=== PATIENT | male | born 1965 | race Caucasian/White ===

== ENCOUNTER 2022-03-31 15:46 | Inpatient (IN) ==
[2022-03-31] MEDS ORDERED: ONDANSETRON 4 MG/2 ML VIAL IV ONE (16:10)
[2022-03-31] MEDS ORDERED: 0.9 % SODIUM CHLORIDE 1,000 ML IV ONE ×2 (16:10→19:06)
[2022-03-31 16:33] LABS: POC Calcium, Ionized 0.98 (1.16-1.32); POC Creatinine 2.7 (0.6-1.2); POC Potassium 3.8 (3.3-5.1)
[2022-03-31] MEDS ORDERED: ONDANSETRON 4 MG ODT TABLET SL ONE (16:39)
[2022-03-31 16:54] LABS: Basophils # (Auto) 0.06 K/mcL (0.00-0.30); Basophils % (Auto) 0.4 % (0.0-2.0); Eosinophils # (Auto) 0.08 K/mcL (0.00-0.70); Eosinophils % (Auto) 0.6 % (0.0-7.0); Hematocrit 47.2 % (40.1-51.0); Hemoglobin 16.7 g/dL (13.7-17.5); Lymphocytes # (Auto) 1.39 K/mcL (1.50-4.80); Lymphocytes % (Auto) 10.2 % (15.5-49.0); Mean Cell Volume 87.7 fL (80.0-100.0); Mean Corpuscular HGB Conc 35.4 g/dL (31.0-36.0); Mean Platelet Volume 8.5 fL (7.4-10.4); Monocytes # (Auto) 1.46 K/mcL (0.10-0.90); Monocytes % (Auto) 10.7 % (1.0-12.0); Neutrophils % (Auto) 77.5 % (38.0-78.0); Platelet Count 294 K/mcL (140-440); RBC 5.38 M/mcL (4.63-6.08); Red Cell Distribution Width 12.1 % (11.5-14.5); WBC 13.6 K/mcL (4.5-11.0)
[2022-03-31 17:19] LABS: ALT/SGPT 38 U/L (<40); AST/SGOT 27 U/L (<40); Albumin 4.2 gm/dL (3.2-5.2); Alkaline Phosphatase 88 U/L (39-117); Bilirubin,Direct 0.2 mg/dL (<0.3); Globulin 3.5 gm/dL (2.2-3.7)
--- NOTE | 2022-03-31 17:32 | Emergency Department Note ---
Nausea/Vomiting/Diarrhea HPI General Chief complaint: Nausea/Vomiting/Diarrhea Stated complaint: Flu Symptoms Time Seen by Provider: 03/31/22 15:58 Source: patient Mode of arrival: ambulatory Limitations: no limitations History of Present Illness HPI Narrative: 56 y/o male with h/o poorly controlled T2DM, neuropathy, C/O flu-like symptoms x 1 week. The patient is hard of hearing at baseline and is a poor historian. I do collect some of his history from a friend here locally by telephone. She tells me that he has been complaining of not feeling well for the week. She stopped by to check on him today and told him he should go to the ER. She does note that he is a poorly controlled diabetic and there are watching his feet for wounds given his neuropathy. The patient endorses + Diarrhea + N/V. He denies urinary symptoms. Denies CVA tenderness. Denies fevers or chills. Denies previous abdominal surgeries. States he voided at about 7:00 this morning, but since then has not voided. Related Data Allergies Allergy/AdvReac Type Severity Reaction Status Date / Time No Known Drug Allergies Allergy Verified 03/31/22 16:15 Review of Systems ROS ROS Narrative: Narrative: All systems ED: reviewed and negative except as stated. [facility] Narrative Patient History Narrative: Narrative: Medical/Surgical/Family History All Active Problems (Updated 03/31/22 @ 19:23 by Nohemi Alvarado PA-C) Partial small bowel obstruction (Acute) Dehydration (Acute) Acute kidney injury (Acute) Social History Smoking Status: Never smoker Exam Narrative Narrative: General: AOx3, NAD, nontoxic appearing. HEENT: PERRL, EOMI, normocephalic. Moist mucous membranes. Normal facies and normal dentition. Chest: Symmetric, no pain to palpation Respiratory: Lungs clear to auscultation bilaterally. No respiratory distress. Unlabored breathing. Heart: Regular rate and rhythm, no murmurs/clicks/rubs. Abdomen: Non-tender, Non distended, normal bowel tones. No organomegaly. Extremities: Warm and well perfused. No edema. DP 2+ bilaterally. No venous stasis. Neuro: No focal deficits. Cranial nerves II-XII grossly normal. Skin: Warm dry, no rashes or lesions, no cyanosis. Psych: Flat mood and affect Heme/Lymph: No abnormal bruising General Limitations: no limitations Course Course Course Narrative: 56-year-old male presents with flulike symptoms and abdominal pain with nausea and vomiting Reevaluation(s) Reevaluation #1: Obtain basic labs, UA, give IV fluids CT scan of the abdomen pelvis Reevaluation #2: Patient's creatinine is 2.7. Last known creatinine was 1.0 on 01/23/2022 CT of the abdomen pelvis shows a possible's partial small bowel obstruction with transition point in the right upper quadrant. The stomach duodenum and jejunum are partially dilated. There is also notable bladder wall thickening and evidence of enlarged prostate. Given the patient's elevated creatinine we will check a bladder scan to query for bladder outlet obstruction. Reevaluation #3: Bladder scan with no urine in the bladder. Patient endorses last voided around 7 AM. Vital Signs Vital signs: Vital Signs Temperature 97.5 F 03/31/22 15:47 Pulse Rate 111 H 03/31/22 15:47 Respiratory Rate 18 03/31/22 15:47 Blood Pressure 129/72 03/31/22 15:47 Pulse Oximetry (%) 98 03/31/22 15:47 Oxygen Delivery Method 03/31/22 15:47 Temperature 97.5 F 03/31/22 15:47 Pulse Rate 94 H 03/31/22 19:49 Respiratory Rate 18 03/31/22 15:47 Blood Pressure 149/114 03/31/22 17:32 Pulse Oximetry (%) 93 03/31/22 19:49 Oxygen Delivery Method 03/31/22 15:47 [facility] Narrative Medical decision making narrative: Partial small bowel obstruction Acute kidney injury Dehydration I have spoken with Dr. Bray, general surgery, and he will see the patient. Plan will be for admission for partial small bowel obstruction and ADILSON. Patient was given an additional liter of IV fluids. No further nausea or vomiting during his evaluation here. Lab Data Result diagrams: 03/31/22 16:27 Labs: Lab Results 03/31/22 03/31/22 03/31/22 Range/Units 16:26 16:27 16:30 WBC 13.6 H (4.5-11.0) K/mcL RBC 5.38 (4.63-6.08) M/mcL Hgb 16.7 (13.7-17.5) g/dL Hct 47.2 (40.1-51.0) % POC Hct 46.0 (41-55) MCV 87.7 (80.0-100.0) fL MCH 31.0 (26.0-34.0) pg MCHC 35.4 (31.0-36.0) g/dL RDW 12.1 (11.5-14.5) % Plt Count 294 (140-440) K/mcL MPV 8.5 (7.4-10.4) fL Immature Gran % (Auto) 0.6 H (0.0-0.5) % Neut % (Auto) 77.5 (38.0-78.0) % Lymph % (Auto) 10.2 L (15.5-49.0) % Gilchrist % (Auto) 10.7 (1.0-12.0) % Eos % (Auto) 0.6 (0.0-7.0) % Baso % (Auto) 0.4 (0.0-2.0) % Lymph # (Auto) 1.39 L (1.50-4.80) K/mcL Gilchrist # (Auto) 1.46 H (0.10-0.90) K/mcL Eos # (Auto) 0.08 (0.00-0.70) K/mcL Baso # (Auto) 0.06 (0.00-0.30) K/mcL Immature Gran # 0.08 H (0.00-0.05) K/mcl Absolute Neutrophils 10.61 H (1.80-8.00) K/mcL POC Sodium 134 (133-145) POC Potassium 3.8 (3.3-5.1) POC Chloride 97 (96-108) POC Total CO2 28.0 (22-30) POC BUN 29 H (6-20) POC Creatinine 2.7 H (0.6-1.2) POC Glucose 266 H (70-105) POC WB Ioniz Calcium 0.98 L (1.16-1.32) Total Bilirubin 1.0 (0.1-1.0) mg/dL Direct Bilirubin 0.2 (<0.3) mg/dL AST 27 (<40) U/L ALT 38 (<40) U/L Alkaline Phosphatase 88 (39-117) U/L Total Protein 7.7 (5.9-8.4) gm/dL Albumin 4.2 (3.2-5.2) gm/dL Globulin 3.5 (2.2-3.7) gm/dL ED POC Tests ED POC Tests: IVETTE - SARS Antigen Negative Discharge Plan Patient/Caregiver Discharge Instructions Pt seen by RN PEDIATRIC/PA only: Yes Clinical Impression: Partial small bowel obstruction, Dehydration, Acute kidney injury Patient Disposition: Xfer As Inpt ([facility])
--- NOTE | 2022-03-31 18:21 | Cat Scan Report ---
CLINICAL INFORMATION: Abdominal pain COMPARISON: Abdomen CT 11/11/2004 TECHNIQUE: 0.625 mm helical slices were obtained from the mid heart through the subtrochanteric regions. Following reconstruction, 2.5 mm sagittal, coronal and axial reformatted images were processed and reviewed at bone and soft tissue windows.The exam was performed using radiation dose optimization techniques including, but not limited to, automated exposure control, adjustment of the mA and/or kV according to patient size and use of iterative reconstruction technique. FINDINGS: The lung bases are clear. No effusions. The visualized heart is grossly normal. Abdominal images show the noncontrasted gallbladder and bile ducts, liver, both kidneys, adrenal glands, spleen, and aorta, are normal in size, configuration and attenuation without focal lesion. Moderate atrophy of the pancreatic head, neck and proximal body has developed since the 2004 examination. The parenchyma is fat replaced in this region. There is no free air, free fluid or adenopathy. Pelvic images through the prostate is moderately enlarged spanning 6 x 3.8 cm. Mild diffuse wall thickening urinary bladder is suggestive of chronic bladder outlet obstruction due to prostatism. Seminal vesicles are normal. The stomach, duodenum and proximal jejunum are moderately dilated to a transition point in the right upper quadrant (best seen on sagittal image 61, axial image 92 and coronal image 50.) There appear to be a stricture in this region. The small bowel distal to this region and the colon are both relatively decompressed. Bone windows show no focal osseous abnormality. There is degenerative change in the lumbar spine. A 9 cm right inguinal hernia contains only mesenteric fat. There is a 4 cm left inguinal hernia containing mesenteric fat IMPRESSION: 1. Partial small bowel obstruction due to stricture in the distal jejunum-right upper quadrant. No evidence of third spacing or free air. 2. 9 cm right inguinal hernia containing only mesenteric fat. 3 cm left inguinal hernia contains only mesenteric fat. 3. Moderate atrophy of the pancreatic head neck and proximal body-new from [address] Interpreted and Authenticated by: Vinod Bennett 03/31/22
--- NOTE | 2022-03-31 20:12 | General Surg History&Physical ---
HPI History of Present Illness Patient information: Note initiated : 03/31/22 at 8:08 pm Service Date, if different from initiated Date: [] Patient: Alejandro Glasgow 56 y/o M admitted on for Flu Symptoms. Chief Complaint: [] Chief complaint: Recurrent nausea vomiting and diarrhea; partial small bowel obstruction History of present illness: Mr. Glasgow is a 56 year old M admitted for treatment of recurrent nausea vomiting diarrhea and acute kidney injury. History is very limited because of severe mental delay and extremely poor hearing. The patient lives alone and does not have any family. According to available history he became ill about 2 days ago with multiple episodes of nausea and vomiting. He estimates that he vomited more than 5 times. He has been unable to keep down any liquids. He states that he did have some diarrhea initially but that has improved. Patient has developed significant acute kidney injury Review of Systems ROS unobtainable: due to mental status (Severe mental developmental delay with no available family) PFSH PFSH All Active Problems (Updated 03/31/22 @ 20:39 by Bucky Bray MD) Nausea vomiting and diarrhea (Acute) Diabetes mellitus (Acute) Partial small bowel obstruction (Acute) Dehydration (Acute) Acute kidney injury (Acute) Family History (Updated 03/31/22 @ 20:33 by Bucky Bray MD) Mother No problems noted. Father No problems noted. MEDS/ALLERGIES Home Medications and Allergies Home Medications Medication Instructions Recorded Confirmed Type amlodipine 5 mg tablet 5 mg PO QDAY 04/01/22 04/01/22 History benazepril 20 mg tablet 20 mg PO QDAY 04/01/22 04/01/22 History diclofenac sodium 1 % topical gel 2 g topical QID 04/01/22 04/01/22 History (Voltaren Arthritis Pain) insulin glargine 100 unit/mL 100 unit subcut QPM 04/01/22 04/01/22 History subcutaneous solution metformin 1,000 mg tablet 1,000 mg PO BID 04/01/22 04/01/22 History nateglinide 120 mg tablet 120 mg PO TID 04/01/22 04/01/22 History testosterone cypionate 200 mg/mL See Rx Instructions .Route .COMPLEX 04/01/22 04/01/22 History intramuscular kit Allergies Allergy/AdvReac Type Severity Reaction Status Date / Time No Known Drug Allergies Allergy Verified 03/31/22 16:15 Physical Examination Vital Signs Vital signs: Temp Pulse Resp BP Pulse Ox O2 Del Method 97.5 F 94 H 18 149/114 93 03/31/22 15:47 03/31/22 19:49 03/31/22 15:47 03/31/22 17:32 03/31/22 19:49 03/31/22 15:47 General physical appearance General physical exam: no distress, moderate pain and obese (Morbidly obese) Eyes Eye exam: PERRL and normal ocular movement ENT ENT exam: normal mucosa, decreased hearing (Moderately severe bilateral hearing loss) and other (Totally edentulous) Head Head exam IM: Present atraumatic, normal inspection and normocephalic Neck Neck exam: no masses, no bruits, trachea midline, no lymphadenopathy and no venous distension Cardiovascular Cardiovascular exam IM: Present normal rate and rhythm, RRR, +S1, +S2 and tachycardia; Absent JVD Peripheral pulses: XXXX: carotid (L), carotid (R), dorsalis pedis (L), dorsalis pedis (R), posterior tibialis (L), posterior tibialis (R), radial (L) and radial (R) Respiratory Respiratory exam: normal expansion, normal respiratory effort and clear to auscultation Abdomen Abdomen: Present non tender, tender (Moderate tenderness in the mid abdomen), bowel sounds (Active bowel sounds) and distended; Absent masses or guarding Hernia: Present inguinal (Right inguinal hernia) Integumentary Integumentary: Present other (Severe intertrigo beneath pannus) Neurologic Neurologic: Present normal coordination, normal sensation and other (Moderately severe mental developmental delay) Musculoskeletal Musculoskeletal: Present other (Gait and stance not tested) Psychiatric Psychiatric: Present oriented to person; Absent oriented to time, speech is normal or memory intact Results Labs Result diagrams: 04/01/22 05:51 04/01/22 05:51 Labs: Abnormal lab results 03/31/22 03/31/22 Range/Units 16:27 16:30 WBC 13.6 H (4.5-11.0) K/mcL Immature Gran % (Auto) 0.6 H (0.0-0.5) % Lymph % (Auto) 10.2 L (15.5-49.0) % Lymph # (Auto) 1.39 L (1.50-4.80) K/mcL [place] # (Auto) 1.46 H (0.10-0.90) K/mcL Immature Gran # 0.08 H (0.00-0.05) K/mcl Absolute Neutrophils 10.61 H (1.80-8.00) K/mcL POC BUN 29 H (6-20) POC Creatinine 2.7 H (0.6-1.2) POC Glucose 266 H (70-105) POC WB Ioniz Calcium 0.98 L (1.16-1.32) Diabetes panel 03/31/22 Range/Units 16:26 AST 27 (<40) U/L ALT 38 (<40) U/L Alkaline Phosphatase 88 (39-117) U/L Total Protein 7.7 (5.9-8.4) gm/dL Albumin 4.2 (3.2-5.2) gm/dL Calcium panel 03/31/22 Range/Units 16:26 Albumin 4.2 (3.2-5.2) gm/dL Adrenal panel 03/31/22 Range/Units 16:26 Total Bilirubin 1.0 (0.1-1.0) mg/dL AST 27 (<40) U/L ALT 38 (<40) U/L Alkaline Phosphatase 88 (39-117) U/L Total Protein 7.7 (5.9-8.4) gm/dL Albumin 4.2 (3.2-5.2) gm/dL All other labs normal. A/P Assessment and plan (1) Nausea vomiting and diarrhea: Status: Acute (2) Partial small bowel obstruction: Status: Acute (3) Diabetes mellitus: Status: Acute (4) Acute kidney injury: Status: Acute (5) Dehydration: Status: Acute Plan Vigorous IV hydration Accu-Cheks every 6 with medium sliding scale insulin coverage CBC and inpatient panel in a.m. Check amylase and lipase Lactic acid level 2 view abdominal x-ray in the morning Baseline chest x-ray and EKG Possible small bowel follow-through if symptoms do not improve Time Spent With Patient Time: Total time spent is greater than 50% in coordination of care (as documented) at patient's floor/unit and/or counseling patient:
[2022-03-31] MEDS ORDERED: DEXTROSE 31 GM ORAL.SUSP PO PRN (20:51)
[2022-03-31] MEDS ORDERED: DEXTROSE 50% 50 ML VIAL IV PRN (20:51)
[2022-03-31] MEDS: INSULIN LISPRO 1 UNIT/0.01 ML UNIT SQ SCH (21:55)
[2022-03-31] MEDS: ONDANSETRON 4 MG/2 ML VIAL IV PRN (22:49)
[2022-03-31] MEDS: 0.9 % SODIUM CHLORIDE 1,000 ML IV SCH (22:57)
[2022-03-31] MEDS: 0.9 % SODIUM CHLORIDE 10 ML SYRINGE IV SCH (22:58)
[2022-04-01] MEDS: INSULIN LISPRO 1 UNIT/0.01 ML UNIT SQ SCH ×4 (00:41→17:47)
[2022-04-01] MEDS: 0.9 % SODIUM CHLORIDE 10 ML SYRINGE IV SCH ×3 (05:37→22:23)
[2022-04-01 07:04] LABS: Basophils # (Auto) 0.02 K/mcL (0.00-0.30); Basophils % (Auto) 0.3 % (0.0-2.0); Eosinophils # (Auto) 0.08 K/mcL (0.00-0.70); Eosinophils % (Auto) 1.1 % (0.0-7.0); Hematocrit 41.4 % (40.1-51.0); Hemoglobin 14.5 g/dL (13.7-17.5); Lymphocytes # (Auto) 1.27 K/mcL (1.50-4.80); Lymphocytes % (Auto) 17.7 % (15.5-49.0); Mean Cell Volume 88.8 fL (80.0-100.0); Mean Platelet Volume 8.3 fL (7.4-10.4); Monocytes # (Auto) 1.02 K/mcL (0.10-0.90); Monocytes % (Auto) 14.2 % (1.0-12.0); Neutrophils % (Auto) 66.4 % (38.0-78.0); Platelet Count 263 K/mcL (140-440); RBC 4.66 M/mcL (4.63-6.08); Red Cell Distribution Width 12.2 % (11.5-14.5); WBC 7.2 K/mcL (4.5-11.0)
[2022-04-01 07:18] LABS: Erythrocyte Sedimentation Rate 11 mm/hr (0-20)
[2022-04-01] MEDS: 0.9 % SODIUM CHLORIDE 1,000 ML IV SCH ×3 (07:26→15:35)
[2022-04-01 07:30] LABS: ALT/SGPT 27 U/L (<40); AST/SGOT 22 U/L (<40); Albumin 3.4 gm/dL (3.2-5.2); Albumin/Globulin Ratio 1.1 (1.0-2.3); Alkaline Phosphatase 80 U/L (39-117); Bilirubin,Direct < 0.2 mg/dL (0-0.3); Bilirubin,Total 0.7 mg/dL (0.1-1.0); Blood Urea Nitrogen 24 mg/dL (6-20); Calcium 7.9 mg/dL (8.6-10.4); Carbon Dioxide 23 mmol/L (22-30); Chloride 102 mmol/L (96-108); Globulin 3.2 gm/dL (2.2-3.7); Glomerular Filtration Rate 39; Glucose 200 mg/dL (70-105); Lactate Dehydrogenase 252 U/L (135-225); Phosphorous 2.5 mg/dL (2.5-4.5); Triglycerides 193 mg/dL (<150); Uric Acid 9.4 mg/dL (2.5-8.0)
--- NOTE | 2022-04-01 12:51 | XRay Report ---
CLINICAL INFORMATION: Preop COMPARISON: None. TECHNIQUE: Portable FINDINGS: The heart size, mediastinum and pulmonary vessels are unremarkable. The lungs are clear. There are no effusions. The bones and soft tissues are within normal limits. IMPRESSION: Normal chest. Interpreted and Authenticated by: Vinod Bennett 04/01/22
--- NOTE | 2022-04-01 13:04 | XRay Report ---
CLINICAL INFORMATION: Follow-up small bowel obstruction COMPARISON: Abdomen and pelvic CT 03/31/2022 FINDINGS: A few loops of proximal small bowel remain moderately dilated with relative decrease in caliber the distal small bowel and colon. Findings compatible with partial small bowel obstruction due to stricture in the right upper quadrant jejunum. There is no free air, soft tissue mass, pathologic ossification organomegaly. IMPRESSION: Mild partial small bowel obstruction in the right upper quadrant Interpreted and Authenticated by: Vinod Bennett 04/01/22
--- NOTE | 2022-04-01 16:53 | General Surgery Progress Note ---
SUBJECTIVE Subjective Patient information: Note initiated : 04/01/22 at 4:47 pm Service Date, if different from initiated Date: [] Patient: Alejandro Glasgow 56 y/o M admitted on 03/31/22 for Flu Symptoms. Chief Complaint: [] Principal diagnosis: Nausea vomiting and diarrhea Interval history: Patient is clinically improved. His white blood count is decreased to 7.2. BUN and creatinine are improved. Serum glucose is 200. He denies abdominal pain. Constitutional Vitals: Vital Signs Temp Pulse Resp BP Pulse Ox O2 Del Method 98.2 F 84 20 118/77 95 04/01/22 12:00 04/01/22 12:00 04/01/22 12:00 04/01/22 12:00 04/01/22 12:00 04/01/22 12:00 Period Temp Pulse Resp BP Sys/Harp Pulse Ox O2 Del Method O2 Flow Rate Last 24 Hr 97.5 F-98.2 F 84-98 - 113-149/74-114 93-96 Room Air-Room Air Intake and Output 04/01/22 04/01/22 04/01/22 05:59 13:59 21:59 Intake Total 400 1720 1000 Output Total 4 Balance 396 1720 1000 Weight 281 lb 8 oz Patient Weight 04/02/22 05:59 Weight 281 lb 8 oz Intake & Output: Intake & Output 04/01/22 04/01/22 04/01/22 05:59 13:59 21:59 Intake Total 400 1720 1000 Output Total 4 Balance 396 1720 1000 Weight 281 lb 8 oz Intake: IV 1000 1000 Sodium Chloride 0.9% 1,000 ml @ 1000 1000 125 mls/hr IV .Q8H [facility] Rx#: [id number] Oral 400 720 Output: # of times incontinent of urine 4 Other: Meal Lunch Percent of Meal Consumed 100% Feeding Ability Assist with Tray Set Up Stool Size Moderate Moderate Stool Color Brown Brown Green Stool Consistency Liquid Loose # Voids 1 # Unmeasured Emesis 1 # Bowel Movements 1 # of times incontinent of 1 1 Bowels ENT Additional comments: Severe hearing deficit Neck Neck exam: Present full ROM and normal inspection; Absent lymphadenopathy or tenderness Respiratory Respiratory exam: Present normal respiratory exam and CTAB Cardiovascular Cardiovascular exam: Present normal rate and rhythm, RRR, +S1 and +S2; Absent gallop or JVD GI/Abdominal GI/Abdominal exam: Present distended (Mild distention) and hyperactive bowel sounds; Absent hernia or organomegaly Extremities Exam Extremities exam: Present pedal edema and neurovascular intact Neurological Exam Additional comments: Oriented to person and place Psychiatric Psychiatric exam: Present depressed and flat affect A/P Assessment and plan (1) Nausea vomiting and diarrhea: Status: Acute (2) Diabetes mellitus: Status: Acute (3) Partial small bowel obstruction: Status: Acute (4) Acute kidney injury: Status: Acute Plan 2 view abdominal x-rays in the morning Continue liquid diet Time Spent With Patient Time: Total time spent is greater than 50% in coordination of care (as documented) at patient's floor/unit and/or counseling patient:
[2022-04-01] MEDS: ONDANSETRON 4 MG/2 ML VIAL IV PRN (17:36)
[2022-04-02] MEDS: 0.9 % SODIUM CHLORIDE 1,000 ML IV SCH ×6 (00:01→20:47)
[2022-04-02] MEDS: INSULIN LISPRO 1 UNIT/0.01 ML UNIT SQ SCH ×6 (00:06→20:58)
[2022-04-02] MEDS: 0.9 % SODIUM CHLORIDE 10 ML SYRINGE IV SCH ×3 (06:08→22:45)
--- NOTE | 2022-04-02 13:04 | XRay Report ---
CLINICAL INFORMATION: FOR F/U OF ILEUS COMPARISON: Abdomen and pelvic x-ray 04/01/2022. FINDINGS: Stomach, small large bowel show minimal symmetric dilatation compatible with mild ileus. Interval resolution of partial small bowel obstruction.. There is no free air, soft tissue mass, organomegaly or pathologic calcification. IMPRESSION: Mild ileus. Interval resolution of partial small bowel obstruction pattern Interpreted and Authenticated by: Vinod Bennett 04/02/22
[2022-04-02] MEDS ORDERED: BISACODYL 10 MG SUPP.RECT PR PRN (13:31)
--- NOTE | 2022-04-02 13:38 | General Surgery Progress Note ---
SUBJECTIVE Subjective Patient information: Note initiated : 04/02/22 at 1:33 pm Service Date, if different from initiated Date: [] Patient: Alejandro Glasgow 56 y/o M admitted on 03/31/22 for Flu Symptoms. Chief Complaint: [] Principal diagnosis: Nausea vomiting and diarrhea Interval history: Patient is clinically improved. Was evaluated by Occupational Therapy and it was her opinion that he has developmental delay. The adult protection services will be consulted. Patient desires to have solid food. x-rays today show increased callus extending to the right without an obstructive pattern. Constitutional Vitals: Vital Signs Temp Pulse Resp BP Pulse Ox O2 Del Method 98.3 F 80 16 145/84 95 04/02/22 11:57 04/02/22 11:57 04/02/22 11:57 04/02/22 11:57 04/02/22 11:57 04/02/22 11:57 Period Temp Pulse Resp BP Sys/Harp Pulse Ox O2 Del Method O2 Flow Rate Last 24 Hr 97.2 F-99 F 78-93 16-20 121-145/76-85 94-96 Room Air-Room Air Intake and Output 04/01/22 04/02/22 04/02/22 21:59 05:59 13:59 Intake Total 2380 1170 1600 Output Total 600 2175 Balance 1780 -1005 1600 Weight 283 lb 14.4 oz Intake & Output: Intake & Output 04/01/22 04/02/22 04/02/22 21:59 05:59 13:59 Intake Total 2380 1170 1600 Output Total 600 2175 Balance 1780 -1005 1600 Weight 283 lb 14.4 oz Intake: IV 1000 1000 1000 Sodium Chloride 0.9% 1,000 ml @ 1000 1000 1000 125 mls/hr IV .Q8H [facility] Rx#: [id number] Oral 1380 170 600 Output: Void Amount 2175 Stool 600 Other: Meal Dinner Breakfast Percent of Meal Consumed 100% 100% Feeding Ability Independent Urine Appearance Clear Urine Color Yellow Urine Odor Foul Stool Size Smear Moderate Stool Color Brown Green Stool Consistency Liquid Loose # of times incontinent of 1 Bowels ENT ENT exam: Present mucous membranes moist, normal exam and normal oropharynx Neck Neck exam: Present full ROM and normal inspection; Absent tenderness Respiratory Respiratory exam: Present normal respiratory exam and CTAB Cardiovascular Cardiovascular exam: Present normal rate and rhythm, RRR, +S1 and +S2; Absent JVD GI/Abdominal GI/Abdominal exam: Present normal bowel sounds (Hyperactive bowel sounds), distended (Mild distention) and tenderness Extremities Exam Extremities exam: Present full ROM, normal inspection and neurovascular intact Neurological Exam Neurological exam: Present abnormal gait and oriented X3 Psychiatric Psychiatric exam: Present flat affect and normal mood A/P Assessment and plan (1) Nausea vomiting and diarrhea: Status: Acute (2) Diabetes mellitus: Status: Acute (3) Partial small bowel obstruction: Status: Acute (4) Acute kidney injury: Status: Acute Plan Dulcolax suppository Trial of solid food Time Spent With Patient Time: Total time spent is greater than 50% in coordination of care (as documented) at patient's floor/unit and/or counseling patient:
[2022-04-02] MEDS ORDERED: MAGNESIUM HYDROXIDE 30 ML ORAL.SUSP PO SCH (16:00)
[2022-04-03] MEDS: 0.9 % SODIUM CHLORIDE 1,000 ML IV SCH ×4 (02:12→19:22)
[2022-04-03] MEDS: 0.9 % SODIUM CHLORIDE 10 ML SYRINGE IV SCH ×3 (05:33→20:03)
[2022-04-03 07:02] LABS: Basophils # (Auto) 0.04 K/mcL (0.00-0.30); Basophils % (Auto) 0.5 % (0.0-2.0); Eosinophils # (Auto) 0.13 K/mcL (0.00-0.70); Eosinophils % (Auto) 1.7 % (0.0-7.0); Hemoglobin 14.1 g/dL (13.7-17.5); Lymphocytes # (Auto) 1.77 K/mcL (1.50-4.80); Lymphocytes % (Auto) 23.5 % (15.5-49.0); Mean Cell Volume 88.7 fL (80.0-100.0); Mean Corpuscular HGB Conc 35.3 g/dL (31.0-36.0); Mean Platelet Volume 8.4 fL (7.4-10.4); Monocytes # (Auto) 0.74 K/mcL (0.10-0.90); Monocytes % (Auto) 9.8 % (1.0-12.0); Neutrophils % (Auto) 63.8 % (38.0-78.0); Platelet Count 253 K/mcL (140-440); RBC 4.51 M/mcL (4.63-6.08); Red Cell Distribution Width 11.9 % (11.5-14.5); WBC 7.5 K/mcL (4.5-11.0)
[2022-04-03] MEDS: INSULIN LISPRO 1 UNIT/0.01 ML UNIT SQ SCH ×3 (08:00→17:21)
--- NOTE | 2022-04-03 12:10 | XRay Report ---
CLINICAL INFORMATION: History of partial mid jejunal obstruction. COMPARISON: 04/02/2022. FINDINGS: The stomach, duodenum and proximal jejunum are mildly dilated with air-fluid level. Distal small bowel and colon are relatively decompressed.. There is no free air, soft tissue mass, organomegaly or pathologic calcification. IMPRESSION: Mild partial small bowel obstruction pattern Interpreted and Authenticated by: Vinod Bennett 04/03/22
--- NOTE | 2022-04-03 13:54 | General Surgery Progress Note ---
SUBJECTIVE Subjective Patient information: Note initiated : 04/03/22 at 1:52 pm Service Date, if different from initiated Date: [] Patient: Alejandro Glasgow 56 y/o M admitted on 03/31/22 for Flu Symptoms. Chief Complaint: [] Principal diagnosis: Nausea vomiting and diarrhea Interval history: Patient appears to be clinically improved. He has tolerated regular diet x2 without difficulty. He has not had nausea. He is passing gas. Abdominal x- rays shows gas in small bowel and colon extending to the distal sigmoid. Constitutional Vitals: Vital Signs Temp Pulse Resp BP Pulse Ox O2 Del Method 97.6 F 76 16 140/87 95 04/03/22 11:15 04/03/22 11:15 04/03/22 11:15 04/03/22 11:15 04/03/22 11:15 04/03/22 11:15 Period Temp Pulse Resp BP Sys/Harp Pulse Ox O2 Del Method O2 Flow Rate Last 24 Hr 97.4 F-98.1 F 76-85 14-24 122-156/68-90 93-96 Room Air-Room Air Intake and Output 04/02/22 04/03/22 04/03/22 21:59 05:59 13:59 Intake Total 1000 1425 1240 Output Total 450 875 Balance 1000 975 365 Weight 287 lb 9.6 oz Intake & Output: Intake & Output 04/02/22 04/03/22 04/03/22 21:59 05:59 13:59 Intake Total 1000 1425 1240 Output Total 450 875 Balance 1000 975 365 Weight 287 lb 9.6 oz Intake: IV 2019 914 9589 Sodium Chloride 0.9% 1,000 ml @ 4356 861 4259 125 mls/hr IV .Q8H [facility] Rx#: [id number] Oral 450 240 Output: Void Amount 450 875 Other: Meal Dinner Breakfast Percent of Meal Consumed 100% 100% Feeding Ability Independent Urine Appearance Clear Cloudy Urine Color Yellow Dark Yellow Urine Odor Normal Stool Size Small Small Stool Color Green Green Stool Consistency Soft Soft Formed Formed # Bowel Movements 1 1 Eye Eye exam: Present EOMI and PERRL Pupils: Present normal accommodation ENT ENT exam: Present normal exam and normal oropharynx Neck Neck exam: Present normal inspection Respiratory Respiratory exam: Present normal respiratory exam and CTAB Cardiovascular Cardiovascular exam: Present normal rate and rhythm, RRR, +S1 and +S2; Absent JVD GI/Abdominal GI/Abdominal exam: Present normal bowel sounds and distended Extremities Exam Extremities exam: Present full ROM, normal inspection and neurovascular intact; Absent pedal edema Psychiatric Psychiatric exam: Present flat affect and normal mood A/P Assessment and plan (1) Adynamic ileus: Status: Acute (2) Diabetes mellitus: Status: Acute (3) Acute kidney injury: Status: Acute (4) Dehydration: Status: Acute Plan Continue on regular diet Milk of magnesia x2 doses Add Reglan every 6 hours Check abdominal x-rays in the morning Time Spent With Patient Time: Total time spent is greater than 50% in coordination of care (as documented) at patient's floor/unit and/or counseling patient:
[2022-04-03] MEDS: ONDANSETRON 4 MG/2 ML VIAL IV PRN ×2 (15:31→20:34)
[2022-04-03] MEDS: MAGNESIUM HYDROXIDE 30 ML ORAL.SUSP PO SCH ×3 (15:35→19:21)
[2022-04-03] MEDS: METOCLOPRAMIDE 10 MG/2 ML VIAL IV SCH (17:45)
[2022-04-03] MEDS: HYDROmorphone 1 MG/ML SYRINGE IV PRN ×2 (17:45→20:38)
[2022-04-03] MEDS ORDERED: ACETAMINOPHEN 1,000 MG/100 ML BAG IV ONE (19:16)
[2022-04-03] MEDS: ACETAMINOPHEN 1,000 MG/100 ML BAG IV SCH (19:18)
[2022-04-04] MEDS: METOCLOPRAMIDE 10 MG/2 ML VIAL IV SCH ×5 (00:18→23:17)
[2022-04-04] MEDS: ACETAMINOPHEN 1,000 MG/100 ML BAG IV SCH ×3 (00:18→13:18)
[2022-04-04] MEDS: INSULIN LISPRO 1 UNIT/0.01 ML UNIT SQ SCH ×5 (00:24→20:58)
[2022-04-04] MEDS: MAGNESIUM HYDROXIDE 30 ML ORAL.SUSP PO SCH ×4 (03:03→21:03)
[2022-04-04] MEDS: 0.9 % SODIUM CHLORIDE 1,000 ML IV SCH ×5 (04:50→23:18)
[2022-04-04] MEDS: 0.9 % SODIUM CHLORIDE 10 ML SYRINGE IV SCH ×3 (05:46→21:04)
[2022-04-04 06:02] LABS: Basophils # (Auto) 0.06 K/mcL (0.00-0.30); Basophils % (Auto) 0.8 % (0.0-2.0); Eosinophils # (Auto) 0.09 K/mcL (0.00-0.70); Eosinophils % (Auto) 1.2 % (0.0-7.0); Hematocrit 40.6 % (40.1-51.0); Hemoglobin 14.2 g/dL (13.7-17.5); Lymphocytes # (Auto) 1.93 K/mcL (1.50-4.80); Lymphocytes % (Auto) 26.3 % (15.5-49.0); Mean Cell Volume 88.8 fL (80.0-100.0); Monocytes % (Auto) 9.5 % (1.0-12.0); Platelet Count 235 K/mcL (140-440); RBC 4.57 M/mcL (4.63-6.08); Red Cell Distribution Width 11.8 % (11.5-14.5); WBC 7.3 K/mcL (4.5-11.0)
[2022-04-04 06:27] LABS: ALT/SGPT 32 U/L (<40); AST/SGOT 22 U/L (<40); Albumin 3.1 gm/dL (3.2-5.2); Albumin/Globulin Ratio 1.1 (1.0-2.3); Alkaline Phosphatase 81 U/L (39-117); Bilirubin,Direct < 0.2 mg/dL (0-0.3); Bilirubin,Total 0.6 mg/dL (0.1-1.0); Blood Urea Nitrogen 5 mg/dL (6-20); Calcium 8.2 mg/dL (8.6-10.4); Carbon Dioxide 27 mmol/L (22-30); Chloride 102 mmol/L (96-108); Globulin 2.9 gm/dL (2.2-3.7); Glomerular Filtration Rate 75; Glucose 140 mg/dL (70-105); Lactate Dehydrogenase 238 U/L (135-225); Phosphorous 2.1 mg/dL (2.5-4.5); Triglycerides 138 mg/dL (<150); Uric Acid 6.3 mg/dL (2.5-8.0)
[2022-04-04] MEDS ORDERED: DIATRIZOATE MEGLU/DIATRIZO SOD 30 ML BOTTLE PO ONE (12:29)
--- NOTE | 2022-04-04 14:12 | General Surgery Progress Note ---
SUBJECTIVE Subjective Patient information: Note initiated : 04/04/22 at 2:12 pm Service Date, if different from initiated Date: [] Patient: Alejandro Glasgow 56 y/o M admitted on 03/31/22 for Flu Symptoms. Chief Complaint: [] Principal diagnosis: Nausea vomiting and diarrhea Interval history: 56-year-old male is evaluated in the emergency room for nausea vomiting diarrhea. He had been symptomatic for 2 days and was finally seen in the emergency room. He was noted to have dehydration acute kidney injury. He was unable to keep any liquids. Abdominal x-rays were suggestive of partial intestinal obstruction in the right upper quadrant but the patient continued to pass gas and his nausea improved. Serial x-rays were done which showed developing diffuse adynamic ileus pattern. This was treated symptomatically and he improved. His diet was gradually advanced, he has tolerated it well. At this time patient is stable and is tolerating a regular diet. Is having regular bowel. Patient is extremely hard of hearing and has poor communication skills. He communicates better with writing. At this time he states that he feels well and wishes to drive home. Constitutional Vitals: Vital Signs Temp Pulse Resp BP Pulse Ox O2 Del Method 98.5 F 67 18 148/85 93 04/04/22 11:18 04/04/22 11:18 04/04/22 11:18 04/04/22 11:18 04/04/22 11:18 04/04/22 07:28 Period Temp Pulse Resp BP Sys/Harp Pulse Ox O2 Del Method O2 Flow Rate Last 24 Hr 97.7 F-98.5 F 67-88 14-20 140-182/80-102 93-97 Room Air-Room Air Intake and Output 04/04/22 04/04/22 04/04/22 05:59 13:59 21:59 Intake Total 1500 560 Output Total 1000 Balance 500 560 Intake & Output: Intake & Output 04/04/22 04/04/22 04/04/22 05:59 13:59 21:59 Intake Total 1500 560 Output Total 1000 Balance 500 560 Intake: IV 1100 200 Sodium Chloride 0.9% 1,000 ml @ 1000 125 mls/hr IV .Q8H [facility] Rx#: [id number] Oral 400 360 Output: Void Amount 1000 Other: Meal Breakfast Percent of Meal Consumed 100% Feeding Ability Independent Urine Appearance Clear Urine Color Bright Yellow A/P Time Spent With Patient Time: Total time spent is greater than 50% in coordination of care (as documented) at patient's floor/unit and/or counseling patient:
--- NOTE | 2022-04-04 16:14 | Cat Scan Report ---
CLINICAL INFORMATION: Abdominal CT pain and distention. Evaluate for colonic obstruction. COMPARISON: Abdomen and pelvic CT 03/31/2022. TECHNIQUE: 0.625 mm helical slices were obtained from the mid heart through the subtrochanteric regions. Following reconstruction, 2.5 mm sagittal, coronal and axial reformatted images were processed and reviewed at bone and soft tissue windows.The exam was performed using radiation dose optimization techniques including, but not limited to, automated exposure control, adjustment of the mA and/or kV according to patient size and use of iterative reconstruction technique. FINDINGS: The lung bases are clear. No effusions. The visualized heart is grossly normal. Abdominal images show the noncontrasted gallbladder and bile ducts, liver, both kidneys, adrenal glands, spleen, and aorta, are normal in size, configuration and attenuation without focal lesion. Moderate atrophy of the pancreatic head, neck and proximal body has developed since the 2004 examination. The parenchyma is fat replaced in this region. There is no free air, free fluid or adenopathy. Pelvic images through the prostate is moderately enlarged spanning 6 x 3.8 cm. Urinary bladder is distended but the wall appears normal on this particular exam. Seminal vesicles are normal. Small bowel obstruction pattern has resolved since the previous exam. Rectal contrast was refluxed to the transverse colon. No evidence of colonic obstruction. Small bowel and colon appear to be symmetrically dilated findings compatible with ileus on today's exam. Bone windows show no focal osseous abnormality. There is degenerative change in the lumbar spine. A 9 cm right inguinal hernia contains only mesenteric fat. There is a 4 cm left inguinal hernia containing mesenteric fat IMPRESSION: 1. No evidence of colonic obstruction and interval resolution of partial small bowel obstruction pattern. Mild ileus. 2. 9 cm right inguinal hernia containing only mesenteric fat. 3 cm left inguinal hernia contains only mesenteric fat. 3. Moderate atrophy of the pancreatic head neck and proximal body-new from [address] Interpreted and Authenticated by: Vinod Bennett 04/04/22
[2022-04-04] MEDS: HYDROmorphone 1 MG/ML SYRINGE IV PRN (23:28)
[2022-04-05] MEDS: MAGNESIUM HYDROXIDE 30 ML ORAL.SUSP PO SCH ×4 (02:00→21:00)
[2022-04-05] MEDS: 0.9 % SODIUM CHLORIDE 1,000 ML IV SCH ×4 (03:30→22:33)
[2022-04-05] MEDS: ONDANSETRON 4 MG/2 ML VIAL IV PRN ×2 (04:34→12:36)
[2022-04-05] MEDS: METOCLOPRAMIDE 10 MG/2 ML VIAL IV SCH ×3 (05:03→17:47)
[2022-04-05] MEDS: 0.9 % SODIUM CHLORIDE 10 ML SYRINGE IV SCH ×3 (05:03→20:57)
[2022-04-05] MEDS: INSULIN LISPRO 1 UNIT/0.01 ML UNIT SQ SCH ×4 (07:09→20:57)
[2022-04-05] MEDS: HYDROmorphone 1 MG/ML SYRINGE IV PRN (08:29)
[2022-04-05] MEDS ORDERED: LISINOPRIL 20 MG TABLET PO ONE (11:41)
[2022-04-05] MEDS ORDERED: amLODIPine 5 MG TABLET PO ONE (11:42)
--- NOTE | 2022-04-05 14:35 | XRay Report ---
CLINICAL INFORMATION: Abdominal pain-ileus COMPARISON: Abdominal films 04/03/2022 FINDINGS: Stomach, small large bowel are minimally dilated and contain scattered air-fluid levels. Findings are compatible with mild ileus. No free air or soft tissue mass. IMPRESSION: Mild ileus Interpreted and Authenticated by: Vinod Bennett 04/05/22
[2022-04-05] MEDS ORDERED: hydrALAZINE 20 MG/ML VIAL IV ONE (16:26)
--- NOTE | 2022-04-05 16:33 | General Surgery Progress Note ---
SUBJECTIVE Subjective Patient information: Note initiated : 04/05/22 at 4:28 pm Service Date, if different from initiated Date: [] Patient: Alejandro Glasgow 56 y/o M admitted on 03/31/22 for Flu Symptoms. Chief Complaint: [] Principal diagnosis: Nausea vomiting and diarrhea Interval history: patient is improved ,He denies having severe pain.He is having regular bowel movements and passing flatus. He tolerated diet without difficulty. Abdominal x-rays shows moderate gas compatible with ileus but no evidence of obstruction. Constitutional Vitals: Vital Signs Temp Pulse Resp BP Pulse Ox O2 Del Method 97 F 86 18 190/103 94 04/05/22 12:00 04/05/22 12:00 04/05/22 12:00 04/05/22 13:52 04/05/22 12:00 04/05/22 12:00 Period Temp Pulse Resp BP Sys/Harp Pulse Ox O2 Del Method O2 Flow Rate Last 24 Hr 97 F-98.8 F 75-86 15-18 145-190/81-103 93-95 Room Air-Room Air Intake and Output 04/05/22 04/05/22 04/05/22 05:59 13:59 21:59 Intake Total 1748 1000 0 Output Total 625 1325 Balance 1123 -325 0 Intake & Output: Intake & Output 04/05/22 04/05/22 04/05/22 05:59 13:59 21:59 Intake Total 1748 1000 0 Output Total 625 1325 Balance 1123 -325 0 Intake: IV 948 1000 Sodium Chloride 0.9% 1,000 ml @ 948 1000 125 mls/hr IV .Q8H [facility] Rx#: [id number] Oral 800 0 Output: Void Amount 600 Urine/Stool Mix 1325 Emesis 25 Other: Meal Breakfast Percent of Meal Consumed 50% Feeding Ability Independent Urine Appearance Clear Urine Color Yellow Urine Odor Normal Stool Size Large Small Stool Color Green Brown Stool Consistency Watery Liquid # Bowel Movements 1 1 # of times incontinent of 0 Bowels Neck Neck exam: Present normal inspection; Absent tenderness Respiratory Respiratory exam: Present normal respiratory exam and CTAB Cardiovascular Cardiovascular exam: Present normal rate and rhythm, RRR, +S1 and +S2; Absent JVD GI/Abdominal GI/Abdominal exam: Present normal bowel sounds, soft and distended (Mild distention) Extremities Exam Extremities exam: Present neurovascular intact; Absent pedal edema Neurological Exam Neurological exam: Present alert; Absent motor sensory deficit Psychiatric Psychiatric exam: Present flat affect A/P Assessment and plan (1) Adynamic ileus: Status: Acute (2) Diabetes mellitus: Status: Acute (3) Dehydration: Status: Acute (4) Acute kidney injury: Status: Acute Plan Continue present therapy Restart oral antihypertensives Possible discharge tomorrow continue present therapy Time Spent With Patient Time: Total time spent is greater than 50% in coordination of care (as documented) at patient's floor/unit and/or counseling patient:
[2022-04-05] MEDS ORDERED: hydrALAZINE 20 MG/ML VIAL ONE (16:55)
[2022-04-06] MEDS: METOCLOPRAMIDE 10 MG/2 ML VIAL IV SCH ×5 (00:05→23:23)
[2022-04-06] MEDS: 0.9 % SODIUM CHLORIDE 1,000 ML IV SCH ×2 (03:22→05:42)
[2022-04-06] MEDS: MAGNESIUM HYDROXIDE 30 ML ORAL.SUSP PO SCH ×4 (03:43→20:28)
[2022-04-06] MEDS: 0.9 % SODIUM CHLORIDE 10 ML SYRINGE IV SCH ×3 (05:32→21:44)
[2022-04-06] MEDS: INSULIN LISPRO 1 UNIT/0.01 ML UNIT SQ SCH ×4 (07:27→20:28)
[2022-04-06] MEDS: amLODIPine 5 MG TABLET PO SCH (08:40)
[2022-04-06] MEDS: LISINOPRIL 20 MG TABLET PO SCH (08:40)
--- NOTE | 2022-04-06 15:29 | General Surgery Progress Note ---
SUBJECTIVE Subjective Patient information: Note initiated : 04/06/22 at 3:23 pm Service Date, if different from initiated Date: [] Patient: Alejandro Glasgow 56 y/o M admitted on 03/31/22 for Flu Symptoms. Chief Complaint: [] Principal diagnosis: Nausea vomiting and diarrhea Interval history: Patient states that he feels much better. He has tolerated his diet without nausea or vomiting. He has regular bowel movements and has passed flatus. His abdominal pain is decreased. Constitutional Vitals: Vital Signs Temp Pulse Resp BP Pulse Ox O2 Del Method 97.9 F 80 18 129/68 94 04/06/22 12:00 04/06/22 12:00 04/06/22 12:00 04/06/22 12:00 04/06/22 12:00 04/06/22 12:00 Period Temp Pulse Resp BP Sys/Harp Pulse Ox O2 Del Method O2 Flow Rate Last 24 Hr 97.4 F-99.0 F 74-91 15-20 129-187/68-91 93-97 Room Air-Room Air Intake and Output 04/06/22 04/06/22 04/06/22 05:59 13:59 21:59 Intake Total 1294 957 Output Total 1750 Balance -456 957 Intake & Output: Intake & Output 04/06/22 04/06/22 04/06/22 05:59 13:59 21:59 Intake Total 1294 957 Output Total 1750 Balance -456 957 Intake: IV 894 477 Sodium Chloride 0.9% 1,000 ml @ 894 477 125 mls/hr IV .Q8H [facility] Rx#: [id number] Oral 400 480 Output: Void Amount 1750 Other: Meal Lunch Percent of Meal Consumed 100% Feeding Ability Independent Urine Appearance Clear Urine Color Yellow Urine Odor Normal Stool Size Moderate Stool Color Green Stool Consistency Liquid # Voids 2 # Bowel Movements 1 # of times incontinent of 1 Bowels Eye Eye exam: Present EOMI Pupils: Present normal accommodation and PERRL ENT ENT exam: Present mucous membranes moist and normal oropharynx Neck Neck exam: Present full ROM and normal inspection; Absent tenderness Respiratory Respiratory exam: Present normal respiratory exam and CTAB; Absent rales, rhonchi or wheezes Cardiovascular Cardiovascular exam: Present normal rate and rhythm, RRR, +S1 and +S2; Absent gallop or JVD GI/Abdominal GI/Abdominal exam: Present normal bowel sounds and soft; Absent distended or tenderness Extremities Exam Extremities exam: Present full ROM, normal inspection and neurovascular intact; Absent tenderness Neurological Exam Neurological exam: Present abnormal gait, normal gait and oriented X3 Psychiatric Psychiatric exam: Present anxious, normal affect and normal mood A/P Assessment and plan (1) Adynamic ileus: Status: Acute (2) Nausea vomiting and diarrhea: Status: Acute (3) Diabetes mellitus: Status: Acute (4) Dehydration: Status: Acute (5) Acute kidney injury: Status: Acute Plan Patient has improved clinically and is stable for discharge tomorrow morning. X-rays and labs will be checked prior to discharge. Time Spent With Patient Time: Total time spent is greater than 50% in coordination of care (as documented) at patient's floor/unit and/or counseling patient:
[2022-04-07] MEDS: MAGNESIUM HYDROXIDE 30 ML ORAL.SUSP PO SCH ×2 (01:40→11:13)
[2022-04-07] MEDS: 0.9 % SODIUM CHLORIDE 10 ML SYRINGE IV SCH (05:56)
[2022-04-07] MEDS: METOCLOPRAMIDE 10 MG/2 ML VIAL IV SCH ×2 (05:56→13:37)
[2022-04-07] MEDS: INSULIN LISPRO 1 UNIT/0.01 ML UNIT SQ SCH ×2 (07:12→11:41)
--- NOTE | 2022-04-07 08:13 | XRay Report ---
INDICATION: Follow up ilius TECHNIQUE: Supine and upright abdomen. COMPARISON: Previous examinations dated 04/05/2022, 04/03/2022. Previous CT scan dated 04/04/2022 FINDINGS:There is gas within the colon. No significant dilatation. No pneumatosis. There is a segment of dilated gas-filled small bowel in the midabdomen. This measures approximately 4.5 cm in cross-sectional diameter. No other small bowel dilatation. Bowel gas pattern is nonspecific without evidence for high-grade mechanical small bowel obstruction. There is no pneumoperitoneum. There is no biliary or portal venous gas. There is chronic elevation of the right hemidiaphragm. IMPRESSION: 1. Dilated segment of small bowel in the mid abdomen. 2. Otherwise unremarkable bowel gas pattern 3. Chronic elevation of the right hemidiaphragm Interpreted and Authenticated by: Vinod Low 04/07/22
[2022-04-07 08:27] LABS: Basophils # (Auto) 0.05 K/mcL (0.00-0.30); Basophils % (Auto) 0.6 % (0.0-2.0); Eosinophils # (Auto) 0.11 K/mcL (0.00-0.70); Eosinophils % (Auto) 1.3 % (0.0-7.0); Lymphocytes # (Auto) 1.96 K/mcL (1.50-4.80); Lymphocytes % (Auto) 22.5 % (15.5-49.0); Mean Cell Volume 87.8 fL (80.0-100.0); Mean Corpuscular HGB Conc 34.8 g/dL (31.0-36.0); Mean Platelet Volume 7.8 fL (7.4-10.4); Monocytes # (Auto) 0.62 K/mcL (0.10-0.90); Monocytes % (Auto) 7.1 % (1.0-12.0); Neutrophils % (Auto) 67.2 % (38.0-78.0); Platelet Count 324 K/mcL (140-440); RBC 5.24 M/mcL (4.63-6.08); Red Cell Distribution Width 12.2 % (11.5-14.5); WBC 8.7 K/mcL (4.5-11.0)
[2022-04-07 08:57] LABS: ALT/SGPT 46 U/L (<40); AST/SGOT 33 U/L (<40); Albumin 4.1 gm/dL (3.2-5.2); Albumin/Globulin Ratio 1.1 (1.0-2.3); Alkaline Phosphatase 104 U/L (39-117); Bilirubin,Direct < 0.2 mg/dL (0-0.3); Bilirubin,Total 0.8 mg/dL (0.1-1.0); Blood Urea Nitrogen 6 mg/dL (6-20); Calcium 9.2 mg/dL (8.6-10.4); Carbon Dioxide 28 mmol/L (22-30); Chloride 103 mmol/L (96-108); Globulin 3.6 gm/dL (2.2-3.7); Glomerular Filtration Rate 61; Glucose 120 mg/dL (70-105); Lactate Dehydrogenase 314 U/L (135-225); Phosphorous 2.3 mg/dL (2.5-4.5); Triglycerides 144 mg/dL (<150)
[2022-04-07] MEDS: amLODIPine 5 MG TABLET PO SCH (10:29)
[2022-04-07] MEDS: LISINOPRIL 20 MG TABLET PO SCH (10:30)
--- NOTE | 2022-04-07 13:18 | Discharge Summary ---
Discharge Provider Provider IMPORTANT FOLLOW-UP INFORMATION FOR PCP: Patient information: Note initiated : 04/07/22 at 1:15 pm Service Date, if different from initiated Date: [] Patient: Alejandro Glasgow 56 y/o M admitted on 03/31/22 for Flu Symptoms. Chief Complaint: [] Date of admission: 03/31/22 20:57 Discharge date: 04/07/22 Admitting clinician: Bucky Bray Attending physician on admission: Bucky Bray Consults: 03/31/22 Consult to Physician [CONS] Stat Comment: Consulting Provider: Bucky Bray Reason For Exam: Physician to Consult Attending physician on discharge: Bucky Bray Discharging clinician: Bucky Bray COURSE Hospital Course Hospital course: Patient has gradually improved and is tolerating diet without difficulty. He is having regular bowel movements and passing flatus. Mental status is at baseline. Patient is stable for discharge home Discharge diagnosis: Acute gastroenteritis Secondary discharge diagnosis: Diffuse adynamic ileus Reason for admission: Nausea vomiting and diarrhea Procedures: None Pertinent studies/significant findings: CT of abdomen and pelvis with rectal contrast Complications: None Time Spent with Patient Time attestation: Total time spent providing and/or coordinating discharge services: Time spent: Less than 30 minutes Physical Examination Vital Signs Vital signs: Temp Pulse Resp BP Pulse Ox O2 Del Method 97.7 F 79 20 148/73 97 04/07/22 12:00 04/07/22 12:00 04/07/22 12:00 04/07/22 12:00 04/07/22 12:00 04/07/22 12:00 Discharge Plan Patient/Caregiver Discharge Instructions Activity: increase activity as tolerated Diet: Regular Diet Prescriptions: Continued nateglinide 120 mg Tablet 120 mg PO TID Rx Instructions: give before meal(s) insulin glargine 100 unit/mL Solution 100 unit SUBCUT QPM amlodipine 5 mg Tablet 5 mg PO QDAY metformin 1,000 mg Tablet 1,000 mg PO BID benazepril 20 mg Tablet 20 mg PO QDAY diclofenac sodium [Voltaren Arthritis Pain] 1 % Gel 2 g TOPICAL QID Rx Instructions: apply to single elbow, wrist or hand; for hand includes palm/fingers/back of hand testosterone cypionate 200 mg/mL Kit See Rx Instructions .ROUTE .COMPLEX Rx Instructions: 100 mg intramuscularly Q10D Follow Up Plan Follow up with: Bucky Bray MD [Physician] - None Patient Disposition: Home, Self-Care Prognosis: Good Rehab Potential: Good I certify that the patient requires SNF services: No Overall status at discharge: patient is back to baseline Discharge Orders: Discharge Order (Routine); Ordered 04/07/22 Ordered By: Bucky Bray Pending Pending Pending: Resuscitation Status Resuscitate (Full Code) Diet Consistent Carbohydrate Diet Start ThuApr 02 1328 Amlodipine Besylate (Amlodipine 5 Mg Tablet) 5 mg PO QDAY [facility] Last Admin: 04/07/22 10:29 Dose: 5 mg Documented By: Admin: 04/06/22 08:40 Dose: 5 mg Documented By: RADHA Co-signed By: AMY Bisacodyl (Bisacodyl 10 Mg Supp.Rect) 10 mg [place] DAILYP PRN PRN Reason: Constipation Last Admin: 04/02/22 16:22 Dose: 10 mg Documented By: FMF Diagnostic Test (Pha) (Accu-Chek 1 Each Strip) 1 each FS ACHS [facility]; Protocol Last Admin: 04/07/22 11:38 Dose: 1 each Documented By: Admin: 04/07/22 07:12 Dose: 1 each Documented By: Admin: 04/06/22 20:28 Dose: 1 each Documented By: Admin: 04/06/22 16:43 Dose: 1 each Documented By: RADHA Co-signed By: AMY Admin: 04/06/22 11:46 Dose: 1 each Documented By: RADHA Co-signed By: AMY Admin: 04/06/22 07:27 Dose: 1 each Documented By: RADHA Co-signed By: AMY Admin: 04/05/22 20:56 Dose: 1 each Documented By: Admin: 04/05/22 17:05 Dose: 1 each Documented By: RADHA Co-signed By: MENDOZA Admin: 04/05/22 11:18 Dose: 1 each Documented By: RADHA Co-signed By: MENDOZA Admin: 04/05/22 07:04 Dose: 1 each Documented By: RADHA Co-signed By: MENDOZA Admin: 04/04/22 20:52 Dose: 1 each Documented By: Admin: 04/04/22 16:25 Dose: 1 each Documented By: Admin: 04/04/22 11:36 Dose: 1 each Documented By: Admin: 04/04/22 05:50 Dose: 1 each Documented By: Admin: 04/04/22 00:18 Dose: 1 each Documented By: Admin: 04/03/22 17:09 Dose: 1 each Documented By: RADHA Co-signed By: JUSTIN Admin: 04/03/22 11:40 Dose: 1 each Documented By: Admin: 04/03/22 07:49 Dose: 1 each Documented By: Admin: 04/02/22 20:58 Dose: 1 each Documented By: Admin: 04/02/22 17:45 Dose: Not Given Documented By: MARCELA Hydromorphone HCl (Hydromorphone 1 Mg/Ml Syringe) 1 mg IV Q2HP PRN; Protocol PRN Reason: Per Pain Protocol Last Admin: 04/05/22 08:29 Dose: 1 mg Documented By: Admin: 04/04/22 23:28 Dose: 1 mg Documented By: Admin: 04/03/22 20:38 Dose: 1 mg Documented By: Admin: 04/03/22 17:45 Dose: 1 mg Documented By: PAIGE Insulin Human Lispro (Insulin Lispro 1 Unit/0.01 Ml Unit) 0 unit SQ ACHS [facility]; Protocol Last Admin: 04/07/22 11:41 Dose: 2 units Documented By: Admin: 04/07/22 07:12 Dose: Not Given Documented By: Admin: 04/06/22 20:28 Dose: 6 units Documented By: Admin: 04/06/22 16:43 Dose: Not Given Documented By: Admin: 04/06/22 11:50 Dose: 2 units Documented By: RADHA Co-signed By: AMY Admin: 04/06/22 07:27 Dose: Not Given Documented By: Admin: 04/05/22 20:57 Dose: Not Given Documented By: Admin: 04/05/22 17:08 Dose: Not Given Documented By: Admin: 04/05/22 11:19 Dose: Not Given Documented By: Admin: 04/05/22 07:09 Dose: 2 units Documented By: RADHA Co-signed By: MENDOZA Admin: 04/04/22 20:58 Dose: 2 units Documented By: Admin: 04/04/22 16:25 Dose: 4 units Documented By: Admin: 04/04/22 11:37 Dose: 2 units Documented By: Admin: 04/04/22 08:33 Dose: Not Given Documented By: Admin: 04/04/22 00:24 Dose: Not Given Documented By: Admin: 04/03/22 17:21 Dose: 2 units Documented By: RADHA Co-signed By: JUSTIN Admin: 04/03/22 11:43 Dose: 6 units Documented By: Admin: 04/03/22 08:00 Dose: 4 units Documented By: Admin: 04/02/22 20:58 Dose: 8 units Documented By: Admin: 04/02/22 17:48 Dose: Not Given Documented By: MARCELA Lisinopril (Lisinopril 20 Mg Tablet) 20 mg PO DAILY [facility] Last Admin: 04/07/22 10:30 Dose: 20 mg Documented By: Admin: 04/06/22 08:40 Dose: 20 mg Documented By: RADHA Co-signed By: AYM Magnesium Hydroxide (Magnesium Hydroxide 30 Ml Oral.Susp) 30 ml PO Q6H [facility] Last Admin: 04/07/22 11:13 Dose: Not Given Documented By: Admin: 04/07/22 01:40 Dose: Not Given Documented By: Admin: 04/06/22 20:28 Dose: 30 ml Documented By: Admin: 04/06/22 13:40 Dose: 30 ml Documented By: RADHA Co-signed By: AMY Admin: 04/06/22 07:28 Dose: Not Given Documented By: Admin: 04/06/22 03:43 Dose: 30 ml Documented By: Admin: 04/05/22 21:00 Dose: 30 ml Documented By: Admin: 04/05/22 13:52 Dose: 30 ml Documented By: RADHA Co-signed By: MENDOZA Admin: 04/05/22 08:07 Dose: 30 ml Documented By: RADHA Co-signed By: MENDOZA Admin: 04/05/22 02:00 Dose: 30 ml Documented By: Admin: 04/04/22 21:03 Dose: 30 ml Documented By: Admin: 04/04/22 13:18 Dose: 30 ml Documented By: Admin: 04/04/22 09:10 Dose: 30 ml Documented By: Admin: 04/04/22 03:03 Dose: 30 ml Documented By: Admin: 04/03/22 19:21 Dose: 30 ml Documented By: Admin: 04/03/22 16:07 Dose: 30 ml Documented By: JUSTIN Metoclopramide HCl (Metoclopramide 10 Mg/2 Ml Vial) 10 mg IV Q6 [facility] Admin: 04/07/22 05:56 Dose: 10 mg Documented By: Admin: 04/06/22 23:23 Dose: 10 mg Documented By: Admin: 04/06/22 18:00 Dose: 10 mg Documented By: Admin: 04/06/22 11:47 Dose: 10 mg Documented By: Admin: 04/06/22 05:32 Dose: 10 mg Documented By: Admin: 04/06/22 00:05 Dose: 10 mg Documented By: Admin: 04/05/22 17:47 Dose: 10 mg Documented By: Admin: 04/05/22 12:28 Dose: 10 mg Documented By: Admin: 04/05/22 05:03 Dose: 10 mg Documented By: Admin: 04/04/22 23:17 Dose: 10 mg Documented By: Admin: 04/04/22 16:25 Dose: 10 mg Documented By: Admin: 04/04/22 11:37 Dose: 10 mg Documented By: Admin: 04/04/22 05:45 Dose: 10 mg Documented By: Admin: 04/04/22 00:18 Dose: 10 mg Documented By: Admin: 04/03/22 17:45 Dose: 10 mg Documented By: PAIGE Ondansetron HCl (Ondansetron 4 Mg/2 Ml Vial) 4 mg IV Q6HP PRN PRN Reason: Nausea And Vomiting Last Admin: 04/05/22 12:36 Dose: 4 mg Documented By: Admin: 04/05/22 04:34 Dose: 4 mg Documented By: Admin: 04/03/22 20:34 Dose: 4 mg Documented By: Admin: 04/03/22 15:31 Dose: 4 mg Documented By: Admin: 04/01/22 17:36 Dose: 4 mg Documented By: Admin: 03/31/22 22:49 Dose: 4 mg Documented By: HELEN Sodium Chloride (0.9 % Sodium Chloride 10 Ml Syringe) 10 ml IV Q8 [facility] Last Admin: 04/07/22 05:56 Dose: 10 ml Documented By: Admin: 04/06/22 21:44 Dose: 10 ml Documented By: Admin: 04/06/22 13:40 Dose: 10 ml Documented By: RADHA Co-signed By: AMY Admin: 04/06/22 05:32 Dose: 10 ml Documented By: Admin: 04/05/22 20:57 Dose: Not Given Documented By: Admin: 04/05/22 12:38 Dose: Not Given Documented By: Admin: 04/05/22 05:03 Dose: 10 ml Documented By: Admin: 04/04/22 21:04 Dose: Not Given Documented By: Admin: 04/04/22 13:19 Dose: Not Given Documented By: Admin: 04/04/22 05:46 Dose: Not Given Documented By: Admin: 04/03/22 20:03 Dose: Not Given Documented By: Admin: 04/03/22 15:36 Dose: Not Given Documented By: Admin: 04/03/22 05:33 Dose: Not Given Documented By: Admin: 04/02/22 22:45 Dose: Not Given Documented By: Admin: 04/02/22 13:28 Dose: Not Given Documented By: Admin: 04/02/22 06:08 Dose: Not Given Documented By: Admin: 04/01/22 22:23 Dose: Not Given Documented By: Admin: 04/01/22 15:30 Dose: Not Given Documented By: Admin: 04/01/22 05:37 Dose: Not Given Documented By: Admin: 03/31/22 22:58 Dose: 10 ml Documented By: HELEN Shift Summary 04/07/22 01:59 Shift Summary by Cary Cramer Primary Diagnosis: Nausea, vomiting, diarrhea. Registration Status: 03/31 - M/S IP Pertinent Medical Hx/Issue(s): Developmentally delayed, deaf - reads lips, written notes, gestures. Difficulty speaking. Vital Signs with Trends: VSS on RA Neuro : A&OX4. Makes needs known. Calls appropriately. Ambulation status : SBA to BSC/chair. Looses balance easily. Diet : CC - Diabetic. Accu checks. PRN Meds: No PRNs given this shift. Lab/Rad (abnormal results): Void / BM: SBA to BSC. Lines/Tubes: IV to RFA SL. Adequate PO intake. Skin / Wound : Red pannus/sean area is improving. Antifungal powder applied. Expected date of discharge: today 02/05 per MD. Discharge Plan (needs, disposition, etc): TBD. Other: Abdominal Xray 04/05 IMPRESSION: Mild ileus Initialized on 04/07/22 01:59 - END OF NOTE
== END 2022-04-07 14:00 | disposition home or self-care (01) | DRG 392 ==
LOC: MERGE 15:46 → ED 15:46 → MEDSUR 20:57
PROVIDERS: ADMIT Family Medicine Adult Medicine; ATTEND Family Medicine Adult Medicine